=== PATIENT | female | born 1965 | race Caucasian/White ===

== ENCOUNTER → 2017-06-07 | Outpatient (REF) | payer OTHER ==
[~2017-06-07] MED LIST: ATR10 PO; CALC500T76 PO; CALC600T63 PO; CHOL100058 PO; ESTR0.62 PO; FISH OIL1 CAP PO; FLU20 PO; IBUP800T37 PO; MULT1CAP59 PO; OXYC-373 PO
== END ==
LOC: ZZSENDIN 17:14
PROVIDERS: ATTEND Urology
DX: N39.0 Urinary tract infection, site not specified (principal); N39.41 Urge incontinence
CPT/HCPCS: 81001; 87088

== ENCOUNTER → 2017-12-01 | Outpatient (CLI) | payer OTHER ==
--- NOTE | 2017-12-01 16:35 | RADIOLOGY IMAGING REPORT ---
FACILITY: [facility] PATIENT NAME: Chela Chahal : 1965 MR: [id number] V: [id number] EXAM DATE: ORDERING PHYSICIAN: COREY DONAHUE TECHNOLOGIST: Location: [facility] [place] Patient: Chela Chahal : 1965 Visit/Account:[id number] Date of Sevice: 12/01/2017 CHEST PA AND LAT INDICATION: Chronic cough COMPARISON: 01/26/2016 FINDINGS: Heart size within normal limits. There is no focal infiltrate or lobar consolidation. There is no pneumothorax or pleural effusion. IMPRESSION: 1. No acute cardiopulmonary process. Report Dictated By: Leoindas Cifuentes at 12/01/2017 4:30 PM Report E-Signed By: Leonidas Cifuentes at 12/01/2017 4:31 PM WSN:[id number]
== END ==
LOC: RAD 15:43
PROVIDERS: ATTEND Nurse Practitioner Family
DX: R05 Cough (principal)
CPT/HCPCS: 71046

== ENCOUNTER → 2018-04-20 | Outpatient (CLI) | payer OTHER ==
--- NOTE | 2018-04-21 08:45 | RADIOLOGY IMAGING REPORT ---
[place] [facility] [place]IENT NAME: DEXTER MEJIA : [id number] MR: [id number] V: [id number] EXAM DATE: [id number] ORDERING PHYSICIAN: COREY DONAHUE TECHNOLOGIST: Chikis Nazario PROCEDURE:BILATERAL DIGITAL SCREENING MAMMOGRAM WITH CAD ASSISTED INTERPRETATION & 3D TOMOSYNTHESIS COMPARISON:Prior mammograms dated 04/04/17, 03/23/16, 03/21/15, 03/14/14, 03/06/13, 09/28/12 INDICATIONS:SCREENING FINDINGS: Moderately heterogeneous fibroglandular tissue is seen throughout the breasts. The parenchymal pattern has remained stable allowing for difference in mammographic technique & patient positioning. There is no evidence of malignant appearing mass, malignant appearing calcification or other secondary sign of malignancy in either breast. DIAGNOSTIC CATEGORY 1--NEGATIVE. RECOMMENDATIONS: ROUTINE MAMMOGRAM AND CLINICAL EVALUATION. IMPRESSION: BIRADS 1: Negative. No significant abnormality is seen. Dictated by: Virgie Cifuentes M.D. on 04/20/2018 at 8:35 Transcribed by: CRISTHIAN on 04/20/2018 at 8:46 Approved by: Virgie Cifuentes M.D. on 04/21/2018 at 8:44 [facility]
== END ==
LOC: MAMO 00:26
PROVIDERS: ATTEND Obstetrics & Gynecology
DX: Z12.31 Encounter for screening mammogram for malignant neoplasm of breast (principal)
CPT/HCPCS: 77063; 77067

== ENCOUNTER → 2018-06-06 | Outpatient (CLI) | payer OTHER ==
--- NOTE | 2018-06-06 15:29 | RADIOLOGY IMAGING REPORT ---
FACILITY: [facility] - [place] PATIENT NAME: Chela Chahal : 1965 MR: [id number] V: [id number] EXAM DATE: ORDERING PHYSICIAN: NAPOLEON ROPER TECHNOLOGIST: Location: [facility] Patient: Chela Chahal : 1965 Visit/Account:[id number] Date of Sevice: 06/06/2018 Exam type: CHEST PA LAT History: Chronic cough past six months Comparison: December 01, 2017. Findings: The lungs are free of acute effusions, infiltrates or edema. The cardiac silhouette is normal in siz e. The trachea is in midline. Visualized bones are unremarkable for age. IMPRESSION: 1. No acute cardiac primary process is seen Report Dictated By: Virgie Cifuentes MD at 06/06/2018 3:12 PM Report E-Signed By: Virgie Cifuentes MD at 06/06/2018 3:13 PM WSN:[id number]
== END ==
LOC: RAD 14:48
PROVIDERS: ATTEND Obstetrics & Gynecology
DX: R05 Cough (principal)
CPT/HCPCS: 71046